=== PATIENT | female | born 1980 | race Caucasian/White ===

== ENCOUNTER → 2019-09-07 11:26 | Outpatient (BNVA) | payer SELFPAY | PROVIDERS: PCP Nurse Practitioner Family; Visit Provider Nurse Practitioner Family | DX: G44.209 Tension-type headache, unspecified, not intractable (principal); R68.89 Other general symptoms and signs | CPT/HCPCS: 87804 ==

== ENCOUNTER → 2019-09-14 12:42 | Outpatient (BNVA) | payer SELFPAY | PROVIDERS: PCP Nurse Practitioner Family; Visit Provider Emergency Medicine | DX: R11.2 Nausea with vomiting, unspecified (principal); R39.15 Urgency of urination | CPT/HCPCS: 81003; 81025 ==

== ENCOUNTER → 2020-08-28 13:28 | Outpatient (BNVA) | payer SELFPAY | PROVIDERS: PCP Nurse Practitioner Family; Visit Provider Nurse Practitioner | DX: N39.0 Urinary tract infection, site not specified (principal) | CPT/HCPCS: 81000 ==

== ENCOUNTER 2021-06-04 18:10 | Emergency (ER) | payer MEDICAID, SELFPAY ==
[2021-06-04 18:31] VITALS: BP 186/129; PULSE 119; RESP 20; TEMP 36.7; O2SAT 98; BMI 27.4
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
[2021-06-04] MEDS: cloNIDine 0.1 mg Tablet 0.2 MG PO (18:59)
[2021-06-04 19:02] VITALS: BP 189/106; PULSE 121; RESP 20; TEMP 36.7; O2SAT 98
--- NOTE | 2021-06-04 19:05 | PC.NURSE ---
dressing applied. no bleeding at htis time
[2021-06-04] MEDS: LORazepam 2 mg/mL INJ 1 mL 1 MG IVP (20:14)
--- NOTE | 2021-06-04 20:16 | PC.NURSE ---
pressure dressing applied per provider order. bleeding stopped.
[2021-06-04 20:57] VITALS: PULSE 72; RESP 16; O2SAT 96
== END 2021-06-04 21:00 | disposition home or self-care (01) ==
PROVIDERS: Emergency Provider Nurse Practitioner Family
DX: S01.01XA Laceration without foreign body of scalp, initial encounter (principal); I10 Essential (primary) hypertension; Y04.2XXA Assault by strike against or bumped into by another person, initial encounter
CPT/HCPCS: 12002; 70450; 72125; 96374; 99284; J2060

== ENCOUNTER 2021-08-10 16:27 | Emergency (ER) | payer BC, MEDICAID, SELFPAY ==
[2021-08-10 16:32] VITALS: BP 176/95; PULSE 95; RESP 18; TEMP 36.6; O2SAT 98; BMI 31.8
--- NOTE | 2021-08-10 17:13 | ED_ITS ---
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 Patient states that she became overwhelmed and short of breath with difficulty and burning in her chest. Since arriving in the ER patient is felt much better and has recovered to near normal. Patient states that she does have some irritation in chest with deep breath but feels a lot better. Patient appears well. Patient appears no acute distress. Associated symptoms: Reports dyspnea Review of Systems General: Reports: 10 or more systems reviewed and unremarkable except in HPI and below Resp: Reports: dyspnea PFSH ED PFSH: Medical History Hypertension Family History Other Hypertension Denies family history of Stroke Social History Smoking and tobacco status: never smoked Alcohol intake: never Female Reproductive History: Date of last menstrual period: 06/04/21 Spontaneous abortions: No Physical Exam Const: COMMON NORMALS: no acute distress and patient oriented x3 GENERAL APPEARANCE: cooperative HENMT: COMMON NORMALS: normocephalic and Normal external nose present HEAD & SCALP: normal to inspection and normocephalic NOSE: Normal external nose present MOUTH: Normal oral and palatal mucosa present THROAT: posterior oropharynx normal Eye: GENERAL EYE: appearance normal, both eyes and all related structures Neck/C-Spine: COMMON NORMALS: full ROM Chest: COMMONS NORMALS: normal inspection of the chest Resp: COMMON NORMALS: normal respiratory effort and clear to auscultation bilaterally EFFORT & INSPECTION: Yes able to speak in complete sentences AUSCULTATION: clear to auscultation bilaterally Cardio: COMMON NORMALS: regular rate and regular rhythm RATE: regular rate RHYTHM: regular rhythm GI: COMMON NORMALS: non-tender Extremity: COMMON NORMALS: normal to inspection Neuro: COMMON NORMALS: patient oriented x3 and moves all extremities Psych: COMMON NORMALS: mental status grossly normal and cooperative Skin: NARRATIVE SKIN EXAM: Light erythematous maculopapular rash to the anterior chest. Course Vital Signs: Vital signs: Vital Signs Temperature 97.9 F 08/10/21 16:32 Pulse Rate 95 08/10/21 16:32 Respiratory Rate 18 08/10/21 16:32 Blood Pressure 176/95 08/10/21 16:32 Pulse Oximetry 98 08/10/21 16:32 MDM - General Adult MDM Narrative: Medical decision making narrative: 41-year-old female comes in today with shortness of breath that occurred as she was in an enclosed area with a large amount of bleach. On exam patient is alert and oriented. Lungs are clear to auscultation. Patient does report feeling a lot better since arriving to the ER. Differential diagnosis includes chemical bronchitis, chemical pneumonitis, bleach exposure, respiratory distress. Patient symptoms have resolved since arriving to the ER. Lungs are clear to auscultation reviewed some symptoms of bronchitis or pneumonia with patient. Patient reported understanding and felt comfortable and will be discharged home with recommendations use plenty of fluids avoiding bleach for the next 24 to 48 h and follow-up with primary care as needed. Discharge Plan Discharge Patient Disposition: Home Clinical Impression: Accidental exposure to bleach, Respiratory difficulty Condition: Stable Prescriptions: No Action fgztsajwfuwd-Le-jcko-minerals 18-0.4 mg tablet PO RF: 0 immuno building supplements PO RF: 0 iron PO RF: 0 lisinopril 10 mg tablet 10 mg PO DAILY Qty: 30 RF: 0 Discharge Orders: Discharge ED (Routine); Ordered 08/10/21 Ordered By: Myron Mandujano Discharge Diet: Usual diet Discharge Activity: Increase activity as tolerated Patient Instructions: Chemical Inhalation Activity Restrictions/Additional Instructions: Home and rest. Avoid exposure to bleach enclosed areas. Make sure to have plenty of air movement in the rooms you are cleaning with bleach. Drink plenty of water. Use acetaminophen or ibuprofen for pain and discomfort. Follow-up with primary care for further evaluation and treatment especially if shortness of breath gets worse or you start running a fever greater than 100.4. Return to the ER for worsening symptoms or new concerns. Coding Level of Care Code ED Claims Technician for Jesse Esquivel
[2021-08-10 18:51] VITALS: BP 176/95; PULSE 95; RESP 18; O2SAT 98
== END 2021-08-10 18:59 | disposition home or self-care (01) ==
PROVIDERS: Emergency Provider Nurse Practitioner Family
DX: J98.9 Respiratory disorder, unspecified (principal); Z77.028 Contact with and (suspected) exposure to other hazardous aromatic compounds; I10 Essential (primary) hypertension
CPT/HCPCS: 99282

== ENCOUNTER → 2021-12-29 10:48 | Outpatient (BNVA) | payer BC, MEDICAID, SELFPAY | PROVIDERS: Visit Provider Podiatrist Foot & Ankle Surgery | DX: L60.0 Ingrowing nail (principal) | CPT/HCPCS: 11750 ==

== ENCOUNTER 2022-03-02 15:41 | Emergency (ER) | payer BC, MEDICAID, SELFPAY ==
[2022-03-02 15:51] VITALS: BP 181/103; PULSE 83; RESP 16; TEMP 37.4; O2SAT 98
[2022-03-02 16:00] VITALS: BP 181/103; PULSE 83; RESP 16; O2SAT 98
--- NOTE | 2022-03-02 16:33 | ED_ITS ---
Documented by User: JODEE Arredondo 03/02/22 16:47 HPI - General Adult General: Chief complaint: General Medical Stated complaint: back/neck pain Time Seen by Provider: 03/02/22 16:03 Source: patient Mode of arrival: ambulatory Limitations: no limitations History of Present Illness: Patient is a nice 41-year-old female who presents to ED today with a complaint of a headache, neck and shoulder pain, lower back pain, body aches, generally feeling unwell and fatigued. Patient states symptoms of been present over the past few days. She did see her primary care provider yesterday who gave her an IM shot of what sounds like a possible anti- inflammatory or steroid for the pain she was having in her neck and shoulders. She was also tested for tick illness (results pending) and placed on doxycycline. Patient states she does not recall being bit by a tick. She is not having any fevers. She does have a history of migraine headaches states this headache does not really feel consistent with those. She has had some sinus pain/pressure. She has not had any nonspecific rashes or skin lesions. No abdominal pain, nausea, vomiting, diarrhea. No sick contacts. Patient does have a history of hypertension. She was hypertensive upon arrival with a BP in the 180s/100s. She states she is not taking her blood pressure medication today. Onset (ago): day(s) Pain Consistency: constant Relieving factors: movement Exacerbating factors: none Associated symptoms: Reports headache(s); Deny chest pain, confusion, dyspnea, nausea, rash or vomiting Review of Systems Const: Reports: body aches and fatigue; Denies: fever(s) or chills Eyes: Denies: change in vision or blurry vision Card: Denies: chest pain Resp: Denies: dyspnea GI: Denies: abdominal pain, nausea, vomiting or diarrhea : Denies: flank pain, dysuria, hematuria or pelvic pain Musc: Reports: neck pain, back pain and joint pain (bilateral shoulder soreness ); Denies: extremity pain, extremity swelling, joint swelling, joint redness or joint warmth Skin/Breast: Denies: rash Neuro: Reports: headache(s); Denies: numbness in extremities, weakness in extremities, sensory changes, difficulty walking, dizziness, confusion or difficulty communicating thoughts PFS ED PFSH: Medical History Hypertension Family History Other Hypertension Denies family history of Stroke Social History Smoking and tobacco status: never smoked Alcohol intake: never Female Reproductive History: Date of last menstrual period: 06/04/21 Spontaneous abortions: No Physical Exam Const: COMMON NORMALS: no acute distress, patient oriented x3, no limitations and alert GENERAL APPEARANCE: cooperative ORIENTATION/CONSCIOUSNESS: Yes awake, Yes oriented to person, Yes oriented to place and Yes oriented to time HENMT: COMMON NORMALS: normocephalic and atraumatic HEAD & SCALP: normal to inspection, normocephalic and atraumatic FACE & SINUS: normal facial exam THROAT: posterior oropharynx normal and tonsils normal Eye: GENERAL EYE: appearance normal, both eyes and all related structures Neck/C-Spine: COMMON NORMALS: full ROM, no lymphadenopathy and no meningeal signs Resp: COMMON NORMALS: normal respiratory effort and clear to auscultation bilaterally AUSCULTATION: clear to auscultation bilaterally Cardio: COMMON NORMALS: regular rate and regular rhythm RATE: regular rate RHYTHM: regular rhythm GI: COMMON NORMALS: Normal to inspection, nondistended, normoactive bowel sounds present, Soft to palpation and non-tender PALPATION: Yes Soft to palpation : COMMON NORMALS: Yes no CVA tenderness BLADDER/KIDNEY EXAM: Yes no CVA tenderness Back/Pelvis: COMMON NORMALS: no CVA tenderness and thoracic and lumbar spine normal to inspection THORACIC SPINE/UPPER BACK: Yes normal to inspection, Yes thoracic ROM normal, No thoracic spinal tenderness, No paraspinal muscle tenderness and No paraspinal muscle spasm LUMBAR SPINE/LOWER BACK: Yes normal to inspection, Yes lumbar ROM normal, No lumbar spinal tenderness, Yes paraspinal muscle tenderness and No paraspinal muscle spasm PELVIS: Yes buttocks normal SACROILIAC JOINTS: Yes SI joints normal SACRUM: no tenderness COCCYX: no tenderness Extremity: COMMON NORMALS: normal to inspection and full ROM NARRATIVE EXTREMITY EXAM: reports generalized soreness to bilateral trapezius muscles but maintains full ROM of joints GENERAL: Yes normal exam except as noted Neuro: DELICIA COMA SCALE: document GCS findings Delicia coma scale eye opening: Spontaneous [place] coma scale verbal response: Orientated Delicia coma scale motor response: Obey commands [place] coma scale total score: 15 COMMON NORMALS: patient oriented x3, CN's II-XII intact bilaterally, moves all extremities, no focal motor deficits, no sensory deficits noted and gait normal SENSORIUM/ORIENTATION: Yes alert, Yes oriented to person, Yes oriented to place and Yes oriented to time MENINGEAL SIGNS: Yes no meningeal signs SPEECH: speech normal GAIT: Yes Normal gait present MOTOR EXAM: 5/5 motor strength present throughout Skin: COMMON NORMALS: no rashes or lesions noted GENERAL SKIN EXAM: no rashes or lesions noted Course Vital Signs: Vital signs: Vital Signs Temperature 99.3 F 03/02/22 15:51 Pulse Rate 83 03/02/22 16:00 Respiratory Rate 16 03/02/22 16:00 Blood Pressure 181/103 03/02/22 16:00 Pulse Oximetry 98 03/02/22 16:00 [facility] - General Adult Lab Data : 03/02/22 16:52 03/02/22 16:52 Laboratory Results WBC 9.1 10^3/uL (4.0-10.0) 03/02/22 16:52 RBC 4.47 10^6/uL (4.1-5.3) 03/02/22 16:52 Hgb 13.9 g/dL (11.5-15.3) 03/02/22 16:52 Hct 39.9 % (37.0-47.0) 03/02/22 16:52 MCV 89.3 fl (81-99) 03/02/22 16:52 MCH 31.1 pg (28.0-34.0) 03/02/22 16:52 MCHC 34.8 g/dL (30.0-36.0) 03/02/22 16:52 RDW 11.6 % (12.1-15.1) L 03/02/22 16:52 Plt Count 301 10^3/cmm (130-400) 03/02/22 16:52 MPV 9.2 fL (7.4-10.4) 03/02/22 16:52 Neut % (Auto) 71.5 % 03/02/22 16:52 Lymph % (Auto) 19.0 % 03/02/22 16:52 [place] % (Auto) 6.5 % 03/02/22 16:52 Eos % (Auto) 1.5 % 03/02/22 16:52 Baso % (Auto) 0.9 % 03/02/22 16:52 Neut # (Auto) 6.47 10^3/uL (1.8-7.7) 03/02/22 16:52 Lymph # (Auto) 1.7 10^3/uL (0.8-4.8) 03/02/22 16:52 [place] # (Auto) 0.6 10^3/uL (0.2-0.9) 03/02/22 16:52 Eos # (Auto) 0.1 10^3/uL (0.0-0.8) 03/02/22 16:52 Baso # (Auto) 0.1 10^3/uL (0.0-0.1) 03/02/22 16:52 Nucleated RBC % (auto) 0 % 03/02/22 16:52 Nucleated RBCs # 0.0 /100WBC 03/02/22 16:52 Sodium 128 mmol/L (136-145) L 03/02/22 16:52 Potassium 3.8 mmol/L (3.5-5.1) 03/02/22 16:52 Chloride 94 mmol/L (98-107) L 03/02/22 16:52 Carbon Dioxide 22 mmol/L (22-29) 03/02/22 16:52 Anion Gap 15.8 (5-19) 03/02/22 16:52 BUN 8 mg/dL (6-20) 03/02/22 16:52 Creatinine 0.5 mg/dL (0.5-0.9) 03/02/22 16:52 GFR Calculation 136.6 mL/min (90-130) H 03/02/22 16:52 Glucose 109 mg/dL (65-115) 03/02/22 16:52 Calculated Osmolality 265 mOsm/kg (285-295) L 03/02/22 16:52 Calcium 8.4 mg/dL (8.5-10.5) L 03/02/22 16:52 Total Bilirubin 0.3 mg/dL (0.15-1.2) 03/02/22 16:52 AST 15 U/L (0-32) 03/02/22 16:52 ALT 14 U/L (0-33) 03/02/22 16:52 Alkaline Phosphatase 83 IU/L (35-105) 03/02/22 16:52 C-Reactive Protein 3.0 mg/L (0.0-4.9) 03/02/22 16:52 Total Protein 6.8 g/dL (6.6-8.7) 03/02/22 16:52 Albumin 4.1 g/dL (3.5-5.2) 03/02/22 16:52 Globulin 2.7 g/dL (1.3-4.6) 03/02/22 16:52 Discharge Plan Discharge Patient Disposition: Home Clinical Impression: Dehydration, mild, Hyponatremia Condition: Stable Prescriptions: No Action siitejsbezoy-Qs-pouv-minerals 18-0.4 mg tablet PO 0RF immuno building supplements PO 0RF iron PO 0RF lisinopril 10 mg tablet 10 mg PO DAILY Qty: 30 0RF silver sulfadiazine [Silvadene] 1 % cream 1 applic topical BID 14 Days Qty: 20 0RF Rx Instructions: apply a 1.5 mm thickness acetaminophen-codeine 300-30 mg tablet 1 tab PO Q6H PRN (Reason: pain) Qty: 10 0RF cephalexin 500 mg capsule 500 mg PO BID 14 Days Qty: 28 0RF acetaminophen-codeine 300-30 mg tablet 1 tab PO Q8H PRN (Reason: pain) Qty: 21 0RF Discharge Orders: Discharge ED (Routine); Ordered 03/02/22 Ordered By: Myron Mandujano Discharge Diet: Usual diet Discharge Activity: Increase activity as tolerated Patient Instructions: Hyponatremia (ED) Activity Restrictions/Additional Instructions: Make sure to drink plenty of fluids in the heat. And when sweating you need to add back electrolytes with solution such as Gatorade or Pedialyte. This will help replace salts in your bloodstream to help you feel better and control your symptoms of malaise. Follow-up with primary care for further instructions and reevaluation. Return to ER for new concerns. Stand Alone Forms: Work/School Release Sign Out Sign Out Data: Patient Sign Out occurred on 03/02/22 at 17:02. Patient's care was discussed, and care was transferred from to Myron Mandujano. Coding Level of Care Code ED Dental Aide for Chg Fwd Exam Comprehensive Documented by User: BRIDGETT Valdes 03/02/22 18:08 HPI - General Adult 2 General: Chief complaint: General Medical Stated complaint: back/neck pain Time Seen by Provider: 03/02/22 16:03 PFSH ED PFSH: Medical History Hypertension Family History Other Hypertension Denies family history of Stroke Social History Smoking and tobacco status: never smoked Alcohol intake: never Physical Exam Neuro: DELICIA COMA SCALE: document GCS findings [place] coma scale total score: 15 Course Vital Signs: Vital signs: Vital Signs Temperature 99.3 F 03/02/22 15:51 Pulse Rate 83 03/02/22 16:00 Respiratory Rate 16 03/02/22 16:00 Blood Pressure 181/103 03/02/22 16:00 Pulse Oximetry 98 03/02/22 16:00 [facility] - General Adult Medical Decision Making 41-year-old female comes in today with complaints of feeling poorly. Patient reports that she has not felt well for the last 2 to 3 days. Patient was seen yesterday and started on some antibiotics for concerns for tick fever. Patient appears nontoxic. Respirations are even lungs are clear to auscultation. Vital signs are normal except for elevated blood pressure. Differential diagnosis includes heat exhaustion, dehydration, electrolyte imbalance, malingering. Laboratory values noted a sodium of 128 with chloride of 94. Remainder of labs were unremarkable. Reviewed exam with patient with recommendations for treatment for mild dehydration and hyponatremia. Patient was recommended to take her blood pressure medication routinely, avoid the heat of the day, and make sure to replace electrolytes with Gatorade or other types of solution. Lab Data : 03/02/22 16:52 03/02/22 16:52 Laboratory Results WBC 9.1 10^3/uL (4.0-10.0) 03/02/22 16:52 RBC 4.47 10^6/uL (4.1-5.3) 03/02/22 16:52 Hgb 13.9 g/dL (11.5-15.3) 03/02/22 16:52 Hct 39.9 % (37.0-47.0) 03/02/22 16:52 MCV 89.3 fl (81-99) 03/02/22 16:52 MCH 31.1 pg (28.0-34.0) 03/02/22 16:52 MCHC 34.8 g/dL (30.0-36.0) 03/02/22 16:52 RDW 11.6 % (12.1-15.1) L 03/02/22 16:52 Plt Count 301 10^3/cmm (130-400) 03/02/22 16:52 MPV 9.2 fL (7.4-10.4) 03/02/22 16:52 Neut % (Auto) 71.5 % 03/02/22 16:52 Lymph % (Auto) 19.0 % 03/02/22 16:52 [place] % (Auto) 6.5 % 03/02/22 16:52 Eos % (Auto) 1.5 % 03/02/22 16:52 Baso % (Auto) 0.9 % 03/02/22 16:52 Neut # (Auto) 6.47 10^3/uL (1.8-7.7) 03/02/22 16:52 Lymph # (Auto) 1.7 10^3/uL (0.8-4.8) 03/02/22 16:52 [place] # (Auto) 0.6 10^3/uL (0.2-0.9) 03/02/22 16:52 Eos # (Auto) 0.1 10^3/uL (0.0-0.8) 03/02/22 16:52 Baso # (Auto) 0.1 10^3/uL (0.0-0.1) 03/02/22 16:52 Nucleated RBC % (auto) 0 % 03/02/22 16:52 Nucleated RBCs # 0.0 /100WBC 03/02/22 16:52 Sodium 128 mmol/L (136-145) L 03/02/22 16:52 Potassium 3.8 mmol/L (3.5-5.1) 03/02/22 16:52 Chloride 94 mmol/L (98-107) L 03/02/22 16:52 Carbon Dioxide 22 mmol/L (22-29) 03/02/22 16:52 Anion Gap 15.8 (5-19) 03/02/22 16:52 BUN 8 mg/dL (6-20) 03/02/22 16:52 Creatinine 0.5 mg/dL (0.5-0.9) 03/02/22 16:52 GFR Calculation 136.6 mL/min (90-130) H 03/02/22 16:52 Glucose 109 mg/dL (65-115) 03/02/22 16:52 Calculated Osmolality 265 mOsm/kg (285-295) L 03/02/22 16:52 Calcium 8.4 mg/dL (8.5-10.5) L 03/02/22 16:52 Total Bilirubin 0.3 mg/dL (0.15-1.2) 03/02/22 16:52 AST 15 U/L (0-32) 03/02/22 16:52 ALT 14 U/L (0-33) 03/02/22 16:52 Alkaline Phosphatase 83 IU/L (35-105) 03/02/22 16:52 C-Reactive Protein 3.0 mg/L (0.0-4.9) 03/02/22 16:52 Total Protein 6.8 g/dL (6.6-8.7) 03/02/22 16:52 Albumin 4.1 g/dL (3.5-5.2) 03/02/22 16:52 Globulin 2.7 g/dL (1.3-4.6) 03/02/22 16:52 Discharge Plan Discharge Patient Disposition: Home Clinical Impression: Dehydration, mild, Hyponatremia Condition: Stable Prescriptions: No Action sbtdttdwuhir-Lb-inhm-minerals 18-0.4 mg tablet PO 0RF immuno building supplements PO 0RF iron PO 0RF lisinopril 10 mg tablet 10 mg PO DAILY Qty: 30 0RF silver sulfadiazine [Silvadene] 1 % cream 1 applic topical BID 14 Days Qty: 20 0RF Rx Instructions: apply a 1.5 mm thickness acetaminophen-codeine 300-30 mg tablet 1 tab PO Q6H PRN (Reason: pain) Qty: 10 0RF cephalexin 500 mg capsule 500 mg PO BID 14 Days Qty: 28 0RF acetaminophen-codeine 300-30 mg tablet 1 tab PO Q8H PRN (Reason: pain) Qty: 21 0RF Discharge Orders: Discharge ED (Routine); Ordered 03/02/22 Ordered By: Myron Mandujano Discharge Diet: Usual diet Discharge Activity: Increase activity as tolerated Patient Instructions: Hyponatremia (ED) Activity Restrictions/Additional Instructions: Make sure to drink plenty of fluids in the heat. And when sweating you need to add back electrolytes with solution such as Gatorade or Pedialyte. This will help replace salts in your bloodstream to help you feel better and control your symptoms of malaise. Follow-up with primary care for further instructions and reevaluation. Return to ER for new concerns. Stand Alone Forms: Work/School Release Sign Out Sign Out Data: Patient Sign Out occurred on 03/02/22 at 17:02. Patient's care was discussed, and care was transferred from to Myron Mandujano. Coding Level of Care Code ED Dental Aide for [place] Fwd Exam Comprehensive
[2022-03-02] MEDS: lisinopril 20 mg Tablet PO (16:46)
[2022-03-02 17:15] LABS: Basophils # 0.1 10^3/uL (0.0-0.1); Basophils % 0.9 %; Eosinophils # 0.1 10^3/uL (0.0-0.8); Eosinophils % 1.5 %; Hematocrit 39.9 % (37.0-47.0); Hemoglobin 13.9 g/dL (11.5-15.3); Lymphocytes # 1.7 10^3/uL (0.8-4.8); Mean Corpuscular HGB Conc 34.8 g/dL (30.0-36.0); Mean Corpuscular Hemoglobin 31.1 pg (28.0-34.0); Mean Corpuscular Volume 89.3 fl (81-99); Mean Platelet Volume 9.2 fL (7.4-10.4); Monocytes # 0.6 10^3/uL (0.2-0.9); Monocytes % 6.5 %; Neutrophils # 6.47 10^3/uL (1.8-7.7); Neutrophils % 71.5 %; Nucleated Red Blood Cells % 0 %; Platelet Count 301 10^3/cmm (130-400); Red Blood Count 4.47 10^6/uL (4.1-5.3); Red Cell Distribution Width 11.6 % (12.1-15.1); White Blood Count 9.1 10^3/uL (4.0-10.0)
[2022-03-02 17:41] LABS: Alanine Aminotransferase 14 U/L (0-33); Albumin Level 4.1 g/dL (3.5-5.2); Alkaline Phosphatase 83 IU/L (35-105); Anion Gap 15.8 (5-19); Aspartate Amino Transferase 15 U/L (0-32); Blood Urea Nitrogen 8 mg/dL (6-20); Calcium 8.4 mg/dL (8.5-10.5); Carbon Dioxide 22 mmol/L (22-29); Chloride 94 mmol/L (98-107); Creatinine Clr Calc Pharmacy 151.3444; Globulin 2.7 g/dL (1.3-4.6); Glomerular Filtration Rate 136.6 mL/min (90-130); Glucose 109 mg/dL (65-115); Osmolality Calculated 265 mOsm/kg (285-295); Potassium 3.8 mmol/L (3.5-5.1); Sodium 128 mmol/L (136-145); Total Bilirubin 0.3 mg/dL (0.15-1.2); Total Protein 6.8 g/dL (6.6-8.7)
== END 2022-03-02 18:04 | disposition home or self-care (01) ==
PROVIDERS: Physician Assistant; Emergency Provider Nurse Practitioner Family
DX: E86.0 Dehydration (principal); E87.1 Hypo-osmolality and hyponatremia; I10 Essential (primary) hypertension
CPT/HCPCS: 80053; 85025; 86140; 99283

== ENCOUNTER → 2022-03-23 09:36 | Outpatient (BNVA) | payer BC, MEDICAID, SELFPAY | PROVIDERS: Visit Provider Emergency Medicine | DX: R68.89 Other general symptoms and signs (principal) | CPT/HCPCS: 87400; 87426 ==